=== PATIENT | female | born 1960 | race African-American/Black ===

== ENCOUNTER 2016-10-04 13:05 | Emergency (ER) | payer OTHER ==
[~2016-10-04] VITALS: Ht 157.5 cm; Wt 83.9 kg
--- NOTE | ~2016-10-04 | EKG ---
[address] [employer] [place] [address] ELECTROCARDIOGRAM REPORT Name: JODIE SAMPSON [facility] [id number] Admission: 10/04/16 Attend Phys: Discharge: 10/04/16 Date of : 60 Report #: [id number] THIS REPORT FOR: //name// [facility] ED Test Date: 2016-10-04 Test Time: 13:49:40 Pat Name: JODIE SAMPSON Department: Room: Gender: F Sewer Hand: MZOOK : 1960 Requested By: Ifeanyi Schroeder Order Number: [id number] MD: Adan Wen Measurements Intervals Bode Rate: 61 P: 43 NM: 155 QRS: -6 QRSD: 113 T: 28 QT: 421 QTc: 424 Interpretive Statements Sinus rhythm No significant abnormality No previous ECG available for comparison Electronically Signed On 10-05-2016 8:54:53 [employer]INE [employer] by Adan Wen [email or web address] <ELECTRONICALLY SIGNED> By: Adan Wen MD, [facility] 10/05/16 [id number] Adan Wen MD, FACC /EPI
[~2016-10-04 13:05] MED LIST: BENAZEPRIL HCL40 MG PO; CRESTOR10 MG PO; HYDROCHLOROTH12.5 M1 PO; HYDROCODONE-APA1 TA1 PO; KEFLEX500 MG PO; LEVEMIR SUBQ; METFORMIN HCL500 MG PO; NOVOLOG100 UNIT/1 SUBQ; VITAMIN D1000 UNI1 PO; ZOFRAN ODT4 MG PO
[2016-10-04 15:11] LABS: ABSOLUTE NEUTROPHILS 5.4 thou/uL (1.4-8.2); BASOPHILS 1.2 % (0.0-2.0); EOSINOPHILS 1.7 % (0.0-3.0); HEMATOCRIT 33.2 % (37.0-47.0); HEMOGLOBIN 11.4 gm/dL (12.0-15.0); LYMPHOCYTES 28.1 % (24.0-44.0); MCH 30.1 pg (26.0-34.0); MCHC 34.3 % (28.0-37.0); MCV 87.6 fL (80.0-100.0); MONOCYTES 11.7 % (1.0-8.0); PLATELET COUNT 275 thou/uL (150-400); POLYS 57.3 % (36.0-66.0); RBC 3.78 mil/uL (4.20-5.00); RDW 12.8 % (10.5-14.5); WBC 9.4 thou/uL (4.0-11.0)
[2016-10-04 15:12] LABS: MANUAL DIFF NO
[2016-10-04 15:18] LABS: ANION GAP 7 mmol/L (7-16); BUN 17 mg/dL (7-18); CALCIUM 8.7 mg/dL (8.5-10.1); CHLORIDE 105 mmol/L (98-107); CO2 29 mmol/L (21-32); GLUCOSE 103 mg/dL (70-99); POTASSIUM 3.7 mmol/L (3.5-5.1); SODIUM 141 mmol/L (136-145)
[2016-10-04 15:32] LABS: ALBUMIN 3.3 g/dL (3.4-5.0); ALKALINE PHOSPHATASE 70 U/L (46-116); NT-PRO BRAIN NAT PEPTIDE 71 pg/mL (<300); SGOT 13 U/L (15-37); SGPT 15 U/L (30-65); TOTAL BILIRUBIN 0.3 mg/dL (<0.1-1.0); TOTAL PROTEIN 7.6 g/dL (6.4-8.2); TROPONIN-I < 0.04 ng/mL (<0.04-0.07)
[2016-10-04] MEDS ORDERED: ZPAK PO (15:42)
== END 2016-10-04 16:12 | disposition home or self-care (01) ==
LOC: ER 13:05
PROVIDERS: Emergency Medicine
DX: J32.9 Chronic sinusitis, unspecified (principal); R04.0 Epistaxis; J40 Bronchitis, not specified as acute or chronic; J06.9 Acute upper respiratory infection, unspecified; I10 Essential (primary) hypertension; E78.5 Hyperlipidemia, unspecified; E11.9 Type 2 diabetes mellitus without complications; Z79.4 Long term (current) use of insulin

== ENCOUNTER → 2017-11-28 | Outpatient (CLI) | payer OTHER, SELFPAY ==
[~2017-11-28] MED LIST changes: +ZPAK PO
== END ==
LOC: RAD 12:13
DX: Z12.31 Encounter for screening mammogram for malignant neoplasm of breast (principal)